=== PATIENT | male | born 1950 | race Caucasian/White ===

== ENCOUNTER → 2016-12-03 | Outpatient (CLI) | payer OTHER | LOC: BMCIMAGING 13:57 | PROVIDERS: ATTEND Internal Medicine | DX: J02.9 Acute pharyngitis, unspecified (principal) ==

== ENCOUNTER 2018-12-27 14:56 | Emergency (ER) | payer OTHER, MEDICARE ==
[2018-12-27 16:40] VITALS: BP 147/87
[2018-12-27] MEDS ORDERED: CEPHALEXIN 500 MG CAP PO ONE (16:45)
--- NOTE | 2018-12-27 17:19 | EDPHY ---
H & P Time Seen by Provider: 12/27/18 16:40 HPI/ROS: CHIEF COMPLAINT: Table saw injury to fingers left hand HISTORY OF PRESENT ILLNESS: 68-year-old [id number] male with up-to- date tetanus, was using a table saw sustained accidental injury to his left 2nd 3rd 4th digit distal phalanx shortly prior to arrival. Denies paresthesia distally. PRIMARY CARE PROVIDER: REVIEW OF SYSTEMS: 10 systems reviewed and are negative with exception of illness mentioned in the history of present illness PHYSICAL EXAM (Prior to examination, patient consented to physical exam, hands were washed and my usual and customary physical exam procedures followed) 1) GENERAL: Well-developed, well-nourished, alert and oriented. Appears to be in no acute distress. 2) HEAD: Normocephalic 3) HEENT: sclera anicteric 4) LUNGS: Breathing comfortably. 6) MUSCULOSKELETAL: Left 2nd digit superficial abrasion to the distal phalanx. 3rd and 4th digit distal phalanx more significant laceration. 3rd digit 2 cm irregular skin edges laceration with no visible osseous components. 4th digit laceration with regular skin edges measuring 1.5 cm. FDP FDS intact affected digits. 7) NEUROLOGIC: Full sensation two-point discrimination intact all digits Smoking Status: Never smoked Constitutional: Initial Vital Signs Temperature (C) 36.8 C 12/27/18 15:07 Heart Rate 93 12/27/18 15:07 Respiratory Rate 16 12/27/18 15:07 Blood Pressure 154/87 H 12/27/18 15:07 O2 Sat (%) 97 12/27/18 15:07 O2 Delivery Mode Room Air Allergies/Adverse Reactions: Penicillins Allergy (Verified 12/27/18 15:07) Home Medications: Medication Instructions Recorded Amlodipine Besylate 12/27/18 Cephalexin [Keflex] 500 mg PO TID 7 Days cap 12/27/18 Lisinopril 12/27/18 MDM/Departure - MDM Imaging Results: Imaging Impressions Hand X-Ray 12/27/18 15:42 Impression: 1. Comminuted intra-articular fracture distal phalanx third finger. 2. Bony tuft fractures distal phalanx second and fourth fingers. Images reviewed by myself Procedures: Procedure: Laceration repair. I explained the indications, risks and benefits for both laceration repair and anesthetic administration. Verbal consent was obtained from the patient. The laceration on the 2nd 3rd 4th digit was anesthetized using 0.5% bupivicaine without epinephrine digital nerve block. After anesthetic administered the patient was observed for a period of time and had no apparent adverse effects. The wound was cleaned, prepped, draped in normal sterile fashion and explored to its base. No foreign body seen, no foreign bodies palpated. There were no deep structures involved. 2nd digit tissue was debrided, no laceration. 3rd digit skin margins are reapproximated with total of 5 simple interrupted 5 O Prolene sutures. 4th digit skin margins were reapproximated with total of 3 simple interrupted 5 O Prolene sutures. T The wound repair was complex. The procedure was performed by myself. Patient has been informed that scarring will occur, although efforts have been made to minimize this. Medications Given: Discontinued Medications Cephalexin HCl (Keflex) 500 mg PO EDNOW ONE PRN Reason: Protocol Stop: 12/27/18 16:46 Last Admin: 12/27/18 16:50 Dose: 500 mg ED Course/Re-evaluation: 526 pm: Consultation with on-call hand surgery Dr. Alvarez who agrees with plan of wound closure, antibiotics, follow up in office this week. I reviewed the patient's x-rays, he does have fractures of the distal phalanx 2nd for the today is Friday. He will need follow-up with Hand surgery tomorrow or Friday. Regarding wound closure, had a lengthy discussion with the patient informed him that the goal of wound closure was not necessarily aesthestic closure and was instead functionality and coverage of underlying osseous structures. Particular concern in this patient is intra-articular component of the 3rd digit. I discussed this with him. Discussed potential long-term sequelae. Patient has been informed that the long-term viability of the affected tissue is incompletely clear at this time therefore the importance of follow-up with Hand surgery has been stressed on numerous instances. He is agreeable with this plan. All questions answered addressed by myself. Patient feels comfortable being discharged. All questions and concerns addressed by myself. Patient given my usual and customary discharge precautions and instructions regarding their clinical impression. Care of patient under supervision of secondary supervising physician Dr Amor . - Depart Disposition: Home, Routine, Self-Care Clinical Impression: Open fracture of tuft of distal phalanx of finger Condition: Good Instructions: Finger Fracture (ED) Additional Instructions: Return to the ER if you develop redness, swelling, discharge, warmth to the wound, red streaks going up your arm, or any other symptoms that concern you. Prescriptions: Cephalexin [Keflex] 500 mg PO TID 7 Days cap Referrals: Magdaleno Alvarez MD [Medical Doctor] - 1-2 days without fail
== END 2018-12-27 17:35 | disposition home or self-care (01) ==
PROC: 0HQGXZZ Repair Left Hand Skin, External Approach (ICD-10-PCS; principal; 2018-12-27)
DX: S62.631B Displaced fracture of distal phalanx of left index finger, initial encounter for open fracture (principal); S62.633B Displaced fracture of distal phalanx of left middle finger, initial encounter for open fracture; S62.635B Displaced fracture of distal phalanx of left ring finger, initial encounter for open fracture; W31.2XXA Contact with powered woodworking and forming machines, initial encounter; Y99.9 Unspecified external cause status